=== PATIENT | male | born 1950 | race Hispanic/Latino ===

== ENCOUNTER 2018-03-07 09:00 | Day surgery (SDC) | payer OTHER, MEDICARE ==
[~2018-03-07] VITALS: Ht 167.6 cm; Wt 78.0 kg
[~2018-03-07 09:00] MED LIST: MELO-108 PO; SODIUM CHLORIDE 0.9% 1000ML 1,000 ML IV ONE
[2018-03-07 09:53] VITALS: BP 125/70
[2018-03-07] MEDS ORDERED: PROPOFOL 10 MG/ML 20ML VIAL IV ONE ×2 (11:34)
[2018-03-07 11:53] VITALS: BP 73/28
== END 2018-03-07 12:32 | disposition home or self-care (01) ==
LOC: DAH 09:00 → ENDO 09:00
PROVIDERS: ATTEND Internal Medicine Gastroenterology
DX: Z12.11 Encounter for screening for malignant neoplasm of colon (principal); E78.5 Hyperlipidemia, unspecified; Z79.899 Other long term (current) drug therapy; Z98.890 Other specified postprocedural states; Z83.3 Family history of diabetes mellitus
CPT/HCPCS: 45378; A4606; J2704 ×2; J7030